=== PATIENT | male | born 2000 | race Caucasian/White ===

== ENCOUNTER 2022-01-05 16:34 | Outpatient (CLI) | payer OTHER | END 2022-01-05 16:35 | disposition home or self-care (01) | LOC: CSHLAB 16:34 | PROVIDERS: ATTEND Surgery | DX: Z20.822 Contact with and (suspected) exposure to COVID-19 (principal) | CPT/HCPCS: U0003; U0005 ==

== ENCOUNTER 2022-01-08 05:41 | Day surgery (SDC) | payer OTHER ==
[2022-01-05 16:12] VITALS: BMI 30.4
[2022-01-08] MEDS ORDERED: Midazolam HCl 2 mg/2 ml Vial ONE (06:25)
[2022-01-08] MEDS ORDERED: PROPOFOL 20 ML ONE (06:25)
[2022-01-08] MEDS ORDERED: Lidocaine 2% PF 5 ML VIAL ONE (06:25)
[2022-01-08] MEDS ORDERED: Fentanyl 100 MCG/2 ML VIAL ONE ×3 (06:25→08:08)
[2022-01-08] MEDS ORDERED: Ondansetron PF 4 MG/2 ML Vial ONE (06:26)
[2022-01-08] MEDS ORDERED: Rocuronium Bromide 10 MG/ML (10ML VIAL) ONE (06:26)
[2022-01-08] MEDS ORDERED: Dexamethasone 4 mg/ml Vial ONE (06:26)
[2022-01-08] MEDS ORDERED: EPINEPHrine 1 MG/ML AMP ONE (06:30)
[2022-01-08] MEDS ORDERED: Bupivacaine PF 0.5% 30 ML VIAL ONE (06:30)
[2022-01-08] MEDS ORDERED: Lidocaine 1% MPF 2 ML VIAL ONE (06:45)
[2022-01-08] MEDS ORDERED: ceFAZolin 2 GM/Dextrose 50 ML IVPB ONE (06:59)
[2022-01-08] MEDS ORDERED: Ketorolac Tromethamine 30 MG/ML VIAL ONE (07:07)
[2022-01-08] MEDS ORDERED: Glycopyrrolate 0.2 MG/ML 5 ML SYRINGE ONE (07:48)
[2022-01-08] MEDS ORDERED: Meperidine HCl/PF 25 MG/ML VIAL ONE (08:09)
[2022-01-08] MEDS ORDERED: Acetaminophen 325 MG TAB PO PRN (08:23)
[2022-01-08] MEDS ORDERED: HYDROcodone/Acetaminophen 5/325 mg Tablet PO PRN (08:23)
== END 2022-01-08 09:54 | disposition home or self-care (01) ==
LOC: CSHSDC 05:41
PROVIDERS: ATTEND Surgery
PROC: 8E0W8CZ Robotic Assisted Procedure of Trunk Region, Via Natural or Artificial Opening Endoscopic (ICD-10-PCS; principal; 2022-01-08)
PROC: 0FT44ZZ Resection of Gallbladder, Percutaneous Endoscopic Approach (ICD-10-PCS; principal; 2022-01-08)
DX: K80.10 Calculus of gallbladder with chronic cholecystitis without obstruction (principal); K82.8 Other specified diseases of gallbladder; E03.9 Hypothyroidism, unspecified; Z79.890 Hormone replacement therapy
CPT/HCPCS: 88304; C1776; J0171; J0690; J1100; J1885; J2001; J2175; J2250; J2405; J2704; J3010; S0020